=== PATIENT | male | born 1945 | race Caucasian/White ===

== ENCOUNTER → 2017-01-13 | Outpatient (CLI) | payer OTHER ==
[~2017-01-13] MED LIST: COUMADIN5 MG PO; DILTIAZEM 24HR240 MG PO; HEPARIN SO5000 UNITS SC; KEFLEX500 MG PO; LEVOFLOXACIN750 MG PO; LISINOPRIL10 MG PO; LO-DOSE ASPIRIN81 M1 PO; LOPRESSOR25 MG PO; METFORMIN HCL500 MG PO; MOTRIN IB200 MG PO; SENNA S TABLET1 EACH PO; SIMVASTATIN40 MG PO
== END | disposition home or self-care (01) ==
LOC: CDC 09:10
DX: R94.31 Abnormal electrocardiogram [ECG] [EKG] (principal)
CPT/HCPCS: 93000

== ENCOUNTER 2017-02-10 13:20 | Day surgery (SDC) | payer OTHER ==
[~2017-02-10] VITALS: Ht 162.6 cm; Wt 99.8 kg
[~2017-02-10 13:20] MED LIST changes: +ATORVASTATIN CA20 MG PO
[2017-02-10 13:39] VITALS: BP 160/94
[2017-02-10 14:26] LABS: POINT-OF-CARE METER ID UU14174212
[2017-02-10 17:26] VITALS: BP 124/70
[2017-02-10 18:15] VITALS: BP 117/66
== END 2017-02-10 18:20 | disposition home or self-care (01) ==
LOC: SDC 13:20
PROVIDERS: Surgery Plastic and Reconstructive Surgery
DX: L89.893 Pressure ulcer of other site, stage 3 (principal); I10 Essential (primary) hypertension; E11.9 Type 2 diabetes mellitus without complications; Q05.9 Spina bifida, unspecified
CPT/HCPCS: 82948; C1763; J0131; J0690; J2250; J3010